=== PATIENT | female | born 1940 | race Caucasian/White ===

== ENCOUNTER 2025-04-27 15:32 | Outpatient (AMB) | payer MEDICARE, MEDICAID, SELFPAY ==
--- NOTE | 2025-04-27 15:33 | MHC.PC.OV ---
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 Carbon Coater Machine Operator Required: No Carbon Coater Machine Operator Name: Doctor speaks palestinian Accompanied by: danitza Allergies No Known Allergies Allergy (Verified 04/27/25 15:40) Medication List - Last Reconciled 04/27/25 by David Howell MD amlodipine 5 mg PO DAILY aspirin (Adult Low Dose Aspirin) 81 mg PO DAILY donepezil 10 mg PO DAILY levothyroxine 88 mcg PO DAILY lisinopril 20 mg PO DAILY memantine (Namenda) 5 mg PO QAM metformin 500 mg PO DAILY simvastatin 20 mg PO DAILY Tobacco use date assessed: 04/27/25 Fall risk assessment: 1 Fall in past year Last assessed Fall Risk: 04/27/25 Dental Screening Dental Screen Date: 04/27/25 Did you have a dental visit in the last 12 months?: No Did you have a dental problem in the last 6 months where you did not have access to dental care?: No Was dental information given to patient?: No HPI HPI Comments History of Present Illness Details History of Present Illness The patient is an 84 year old female presenting with establishment of care and management of chronic conditions including Alzheimer's disease, diabetes, and hypertension. Alzheimer's Disease: The patient has a diagnosis of Alzheimer's disease, for which she takes donepezil 10 mg and memantine. Her cognitive function fluctuates; on some days she has memory recall, while on other days she does not remember recent events like meals. She lives with her mother, and her granddaughter is the primary decision-maker. Type 2 Diabetes Mellitus: The patient has a diagnosis of type 2 diabetes mellitus, managed with metformin 500 mg. She has associated peripheral vascular disease. Hypertension: The patient has hypertension, treated with amlodipine 5 mg and lisinopril 20 mg. Hypothyroidism: The patient has hypothyroidism, for which she takes levothyroxine. Glaucoma: The patient has a history of glaucoma and uses eye drops, though the specific medication is not known at this time. History of Breast Cancer: The patient has a history of breast cancer and underwent a lumpectomy followed by radiotherapy approximately 18 years ago. Her mammograms have reportedly been normal since then. Surgical History: - Lumpectomy for breast cancer, approximately 18 years ago. Medications: - Amlodipine 5 mg for hypertension. - Aspirin 81 mg for cardiovascular protection. - Donepezil 10 mg for Alzheimer's disease. - Memantine for Alzheimer's disease. - Levothyroxine for hypothyroidism. - Lisinopril 20 mg for hypertension. - Metformin 500 mg for type 2 diabetes. - Simvastatin 20 mg for cardiovascular protection. - Unspecified eye drops for glaucoma. Social History: - The patient lives with her mother. - Her granddaughter is her primary decision-maker and has paperwork, such as a proxy. - She does not currently receive home healthcare services. - She has a history of biting her nails, which is attributed to anxiety. Diagnostic Results: - Mammograms: Reported as good to date. - Pap smears: Reported as normal. Past Medical History - Alzheimer's disease - Type 2 diabetes mellitus - Hypertension - Hypothyroidism - History of breast cancer, status post lumpectomy and radiotherapy 18 years ago. - Glaucoma - Peripheral vascular disease Health Maintenance - The patient's mammograms have been good to date following her history of breast cancer. - The patient's Pap smears were reported as always normal. - It is unknown if she has ever had a colonoscopy. - As a patient with type 2 diabetes, she should see an threading machine setter and mapping engineer annually, as well as a electronics parts sales representative and community health educator. [facility] Medical History (Updated 04/27/25 @ 19:07 by David Howell MD) Benign essential tremor Overgrown toenails Peripheral vascular disease History of breast cancer Glaucoma Hypothyroid Hypertension Diabetes type 2 Alzheimer's dementia Surgical History (Updated 04/27/25 @ 15:45 by Matt Quinn CMA) H/O lumpectomy Social History (Updated 04/27/25 @ 15:46 by Matt Quinn CMA) Housing: Apartment Alcohol intake: current Comment: ocasionally Patient Tobacco Use Status: Never used Tobacco e-Cigarette/Vaping Use: Never Used service: No Current occupational status: retired Cognitive needs: Yes Hearing needs: No Vision needs: No Questionnaire PHQ-9 Over the last 2 weeks, how often have you been bothered by any of the following problems? 1. Little interest or pleasure in doing things: nearly every day 2. Feeling down, depressed, or hopeless: more than half the days 3. Trouble falling or staying asleep, or sleeping too much: several days 4. Feeling tired or having little energy: several days 5. Poor appetite or overeating: nearly every day 6. Feeling bad about yourself - or that you are a failure or have let yourself or your family down: not at all 7. Trouble concentrating on things, such as reading the newspaper or watching television: more than half the days 8. Moving or speaking so slowly that other people could have noticed. Or the opposite - being so fidgety or restless that you have been moving around a lot more than usual: more than half the days 9. Thoughts that you would be better off or of hurting yourself in some way: not at all Total score: 14 Depression Screening Interpretation: Positive Depression Screening Follow-up: Follow-up Visit Requested Depression Screening Done: Yes 57075 - PHQ-9 Billing: Yes Source: Developed by Drs. Spenser Rojas, Anh Lainez, Sukhwinder Grullon and colleagues, with an educational fatoumata from [employer]. Thrive Questionnaire Date Thrive assessed: 04/27/25 I am a: Parent/Caregiver What is your living situation today?: I have a steady place to live Within the past 12 months, did the food you bought not last and you didn't have the money to get more?: Often true Within the past 12 months, did you worry whether your food would run out before you got money to buy more?: Never true Do you have trouble paying for medicines?: No Do you have trouble getting transportation to medical appointments?: No Do you have trouble paying your heating and electricity bill?: No Do you have trouble taking care of your child, family member or friend?: No Are you currently unemployed and looking for a job?: Yes Are you interested in more education?: No Please select the resources that you would like help with: None Currently or been in a relationship where the following occur: No concerns reported THRIVE Score: 1 AUDIT C Alcohol Use Questionnaire (AUDIT-C) 1. How often do you have a drink containing alcohol?: Never Total Score: 0 VEENA-7 AMB Questionnaire VEENA-7 Date VEENA - 7 assessed: 04/27/25 Feeling nervous, anxious, or on edge: 1 = Several days Not being able to stop or control worryin = Not at all Worrying too much about different things: 0 = Not at all Trouble relaxin = Not at all Being so restless that it is hard to sit still: 0 = Not at all Becoming easily annoyed or irritable: 0 = Not at all Feeling afraid as if something awful might happen: 0 = Not at all Total VEENA-7 score (0-4 normal; 5-9 mild; 10-14 moderate; 15-21 severe): 1 Source: Developed by Drs. Spenser Rojas, Anh Lainez, Sukhwinder Grullon and colleagues, with an educational fatoumata from [employer]. VEENA-7 Assessment Billing VEENA-7 Assessment Tool: VEENA-7 Assessment 45600 Review of Systems Narrative Review of Systems - Constitutional: Reports falling asleep easily but waking up early and sometimes in the middle of the night. - Genitourinary: Reports normal urination. - Gastrointestinal: Reports normal bowel movements. - Psychiatric: Reports anxiety, manifesting as nail-biting. 10-point ROS reviewed and negative except as noted in HPI Physical exam (Primary Care) Vital Signs: Last Vital Signs Temp 98.2 F 04/27/25 15:47 Pulse 78 04/27/25 15:47 Resp 16 04/27/25 15:47 BP 117/68 04/27/25 15:47 Pulse Ox 100 04/27/25 15:47 Oxygen Delivery Method Room Air 04/27/25 15:47 BMI result Body Mass Index 22.7 Tobacco/Smoking Status: Tobacco use Status Tobacco use date assessed 04/27/25 04/27/25 15:49 Patient Tobacco Use Status Never used Tobacco 04/27/25 15:49 e-Cigarette/Vaping Use Never Used 04/27/25 15:49 PHQ-9: PHQ-9 Score PHQ-9: Total score 14 04/27/25 16:12 Depression Screening Interpretation: Positive Depression Screening Follow-up: Follow-up Visit Requested Thrive Assessment: Date of Thrive Assessment Date Thrive assessed 04/27/25 04/27/25 15:35 Currently or been in a relationship where the following occur: No concerns reported Narrative Physical Exam General: Well-appearing, in no acute distress. Vital signs: Within normal limits. HEENT: Normocephalic, atraumatic. PERRLA, EOMI. Conjunctiva clear, sclera anicteric. Oropharynx clear, mucous membranes moist. TMs intact bilaterally. Neck: Supple, no lymphadenopathy, no thyromegaly, no JVD or carotid bruits. Cardiovascular: RRR, normal S1/S2, no murmurs, rubs, or gallops. Peripheral pulses 2+ and symmetric. No edema. Respiratory: Lungs clear to auscultation bilaterally, no wheezes, rales, or rhonchi. Normal effort. Abdomen: Soft, non-tender, non-distended. Normoactive bowel sounds. No hepatosplenomegaly, no masses. MSK: Full range of motion, no joint swelling or deformity. Normal gait. Skin: Warm, dry, intact. No rashes, lesions, or pallor. Slight tremors noted. Shiny skin observed, indicative of peripheral vascular disease. Neuro: Alert and oriented x3. Cranial nerves II-XII intact. Strength 5/5 throughout. Sensation intact. Reflexes 2+ symmetric. Normal coordination and gait. Psych: Appropriate mood and affect. Normal judgment and insight. Results AMB Hemoglobin A1c AMB Hemoglobin A1c 6.2 % Last Edit by Matt Quinn CMA on 04/27/25 16:07 Results Reviewed Results Reviewed: Laboratory Last Values Hgb A1c (Clinic) 6.2 % (4.0-6.0) H 04/27/25 16:06 Coding Level of Care Code New Pt Level 4 (00296) Add On Problem Visit Only Diagnoses Alzheimer's dementia G30.9; F02.80 Diabetes type 2 E11.9 Hypertension I10 Hypothyroid E03.9 Glaucoma H40.9 History of breast cancer Z85.3 Peripheral vascular disease I73.9 Overgrown toenails L60.2 Benign essential tremor G25.0 Additional Codes VEENA-7 Assessment Billing - VEENA-7 Assessment Tool: VEENA-7 Assessment 27776 ([id number]) PHQ-9 - 69372 - PHQ-9 Billing: Yes ([id number]) Assessment & Plan Assessment & Plan (1) Alzheimer's dementia: Code(s): G30.9 - Alzheimer's disease, unspecified; F02.80 - Dementia in other diseases classified elsewhere, unspecified severity, without behavioral disturbance, psychotic disturbance, mood disturbance, and anxiety Category: Medical (2) Diabetes type 2: Code(s): E11.9 - Type 2 diabetes mellitus without complications Category: Medical (3) Hypertension: Code(s): I10 - Essential (primary) hypertension Category: Medical (4) Hypothyroid: Code(s): E03.9 - Hypothyroidism, unspecified Category: Medical (5) Glaucoma: Code(s): H40.9 - Unspecified glaucoma Category: Medical (6) History of breast cancer: Code(s): Z85.3 - Personal history of malignant neoplasm of breast Category: Medical (7) Peripheral vascular disease: Code(s): I73.9 - Peripheral vascular disease, unspecified Category: Medical (8) Overgrown toenails: Code(s): L60.2 - Onychogryphosis Category: Medical (9) Benign essential tremor: Code(s): G25.0 - Essential tremor Category: Medical Plan Consent The patient's granddaughter, who makes most decisions for her, was present and consented to the evaluation and management plan on the patient's behalf. Patient was informed and verbally consented to the use of an ambient scribe for clinic note documentation during this visit. Plan 1. Establishment Of Care - Comprehensive lab work will be ordered, including a CBC, CMP, electrolytes, magnesium, vitamin B12, folate, vitamin D, hemoglobin A1c, lipid panel, thyroid screen, hepatitis B, hepatitis C, HIV, and syphilis screening. - A follow-up appointment is scheduled in two weeks to review the lab results. - Assistance will be provided to complete proxy paperwork. - Medication refills will be needed next month and will be addressed. 2. Type 2 Diabetes Mellitus - Referrals will be placed for ophthalmology, podiatry, a electronics parts sales representative, and a community health educator. 3. Glaucoma - The patient's granddaughter will provide the name of the glaucoma eye drops via the patient portal for prescription. 4. Anxiety - Behavioral strategies such as redirection are recommended to manage anxiety-related behaviors like nail-biting. Discussion Notes I reviewed the patient's current medications, including amlodipine and lisinopril for blood pressure, aspirin and simvastatin for cardiovascular protection due to her diabetes, donepezil and memantine for Alzheimer's, levothyroxine for hypothyroidism, and metformin for type 2 diabetes. I explained to the patient's granddaughter that I will order a comprehensive set of labs to get a baseline on her health, and we will follow up in two weeks to discuss the results. I also discussed the importance of yearly follow-ups with ophthalmology and podiatry due to her diabetes, and will be placing referrals for these specialists, as well as for a electronics parts sales representative and a community health educator. We discussed the process for obtaining the name of her glaucoma medication, which can be sent via the patient portal, and the importance of establishing a healthcare proxy. Patient Instructions - Please have the patient go for blood tests. - Schedule a follow-up appointment in two weeks to review the lab results. - Use the patient portal to send the name of the eye drops for glaucoma. - You will be contacted to schedule appointments with an eye doctor (threading machine setter), a foot doctor (mapping engineer), a electronics parts sales representative, and a staff development educator. - Continue to use redirection as a behavioral technique for anxiety. Medical Decision Making The patient is an 84-year-old female with multiple chronic conditions, including Alzheimer's disease, type 2 diabetes, and hypertension, who is establishing care. The primary goal of this visit is to gather a comprehensive baseline of her health status to ensure continuity of care, as her granddaughter has recently become more involved in her medical decisions. A comprehensive lab panel is warranted to assess her metabolic function, glycemic control (A1c), renal and hepatic function, lipid profile, and thyroid status, given her multiple comorbidities and medications. Given her diagnosis of type 2 diabetes, referrals to ophthalmology and podiatry are standard of care to screen for complications. Referrals to a electronics parts sales representative and community health educator are also indicated to optimize her diabetes management. Establishing formal healthcare proxy is crucial due to her fluctuating cognitive status from Alzheimer's disease to ensure her granddaughter can legally make medical decisions. A follow-up in two weeks is planned to review all findings and adjust management accordingly. Total Time Statement 30 min Total time spent caring for the patient today includes pre-visit chart review, documentation, review of laboratory and diagnostic imaging results, medication reconciliation, medically necessary evaluation, counseling on diagnoses, care coordination, ordering appropriate tests and medications, review of tests performed by other providers, reporting test results to the patient, and communication with other healthcare providers. Orders: Orders Complete Blood Count Auto Diff Today Z13.9 - Encounter for screening, unspecified Hepatitis B Surface Antigen Today Z13.9 - Encounter for screening, unspecified Syphilis Screen Today Z13.9 - Encounter for screening, unspecified Hepatitis C Antibody Today Z13.9 - Encounter for screening, unspecified HIV Ab/Ag Today Z13.9 - Encounter for screening, unspecified UA CC w/rflx Micro + Cult Today Z13.9 - Encounter for screening, unspecified AMB Hemoglobin A1c Today Z13.9 - Encounter for screening, unspecified Lipid Panel Today Z13.9 - Encounter for screening, unspecified Vitamin B12 and Folate Today Z13.9 - Encounter for screening, unspecified Hemoglobin A1c Today Z13.9 - Encounter for screening, unspecified Magnesium Today Z13.9 - Encounter for screening, unspecified Hepatitis B Surface Antibody Today Z13.9 - Encounter for screening, unspecified Comprehensive Met. Panel Today Z13.9 - Encounter for screening, unspecified TSH reflex Free T4 Today Z13.9 - Encounter for screening, unspecified CT NG by PCR Urine Today Z13.9 - Encounter for screening, unspecified Vitamin D 1,25 dihydroxy Today Z13.9 - Encounter for screening, unspecified
[2025-04-27 15:47] VITALS: BP 117/68; PULSE 78; RESP 16; TEMP 36.8; O2SAT 100; BMI 22.7
== END 2025-04-27 16:35 | disposition home or self-care (01) ==
PROVIDERS: PCP Student in an Organized Health Care Education/Training Program; Visit Provider Student in an Organized Health Care Education/Training Program
DX: G30.9 Alzheimer's disease, unspecified (principal); F02.80 Dementia in other diseases classified elsewhere, unspecified severity, without behavioral disturbance, psychotic disturbance, mood disturbance, and anxiety; E11.9 Type 2 diabetes mellitus without complications; I10 Essential (primary) hypertension; E03.9 Hypothyroidism, unspecified; H40.9 Unspecified glaucoma; Z85.3 Personal history of malignant neoplasm of breast; I73.9 Peripheral vascular disease, unspecified; L60.2 Onychogryphosis; G25.0 Essential tremor; Z13.9 Encounter for screening, unspecified

== ENCOUNTER → 2025-04-27 15:32 | Outpatient (BNVA) | payer MEDICARE, MEDICAID, SELFPAY | PROVIDERS: Visit Provider Student in an Organized Health Care Education/Training Program | DX: G30.9 Alzheimer's disease, unspecified (principal); F02.80 Dementia in other diseases classified elsewhere, unspecified severity, without behavioral disturbance, psychotic disturbance, mood disturbance, and anxiety; E11.9 Type 2 diabetes mellitus without complications; I10 Essential (primary) hypertension; E03.9 Hypothyroidism, unspecified; H40.9 Unspecified glaucoma; Z85.3 Personal history of malignant neoplasm of breast; I73.9 Peripheral vascular disease, unspecified; L60.2 Onychogryphosis; G25.0 Essential tremor; F41.9 Anxiety disorder, unspecified; Z79.890 Hormone replacement therapy; Z79.899 Other long term (current) drug therapy; Z79.82 Long term (current) use of aspirin; Z13.31 Encounter for screening for depression; Z13.39 Encounter for screening examination for other mental health and behavioral disorders | CPT/HCPCS: 83036; 96127; 99202 ==